=== PATIENT | male | born 1990 | race Caucasian/White ===

== ENCOUNTER 2021-05-17 12:17 | Emergency (ER) | payer MEDICAID ==
[2021-05-17] MEDS ORDERED: Metoclopramide 10 MG/2 ML SDV IVPUSH ONE (12:54)
[2021-05-17] MEDS ORDERED: diphenhydrAMINE 50 MG/ML SDV IVPUSH ONE (12:55)
[2021-05-17] MEDS ORDERED: HYDROmorphone 0.5 MG/0.5 ML Syringe IVPUSH ONE (12:55)
--- NOTE | 2021-05-17 12:59 | EDM.PDOC ---
ED HPI GENERAL MEDICAL PROBLEM - General Chief Complaint: Respiratory Problem Stated Complaint: POSS COVID SOB Time Seen by Provider: 05/17/21 12:40 Source of Information: Reports: Patient History Limitations: Reports: No Limitations - History of Present Illness INITIAL COMMENTS - FREE TEXT/NARRATIVE: 30-year-old male presents to the ED with COVID-19 symptoms. He has had fever chills and generalized myalgia for the last 4 days. Associated nausea vomiting can't even keep water down. He estimates he is having 20 bowel movements per day small quantities yellow stool loss with abdominal cramping pain. His father has COVID-19 and is getting better after receiving monoclonal antibodies. His sister was in hospital last week and apparently on a ventilator for period of time but is now back home. He states his mouth is terribly dry he is lightheaded dizzy and can barely walk due to weakness. Denies headache. Believes his sense of taste and smell are retained. No significant sore throat. Is coughing paroxysmal A but not producing any sputum. Onset: Sudden Onset Date: 05/13/21 Duration: Day(s):, Getting Worse Location: Reports: Chest, Generalized (Paroxysmal minimally productive cough generalized myalgia), Other (Significant diarrhea with fluid losses nausea vo miting) Quality: Reports: Other (Normalized) Severity: Severe (aching muscles neck low back thighs) Improves with: Reports: None Worsens with: Reports: Other (Is worse if he tries to stand up and walk. Came into the ED in a wheelchauir.) Context: Reports: Sick Contact. Denies: Activity, Exercise, Lifting Associated Symptoms: Reports: Chest Pain (Coughing.), Cough (Sister and father have COVID-19 illness), Diaphoresis, Fever/Chills ( stool loss), Loss of Appetite, Malaise, Nausea/Vomiting, Shortness of Breath, Other (Unable to keep down water. Diarrhea up to 20 times per day small quantity yellow). Denies: cough w sputum, Headaches Treatments NEGATIVE CLEANER: Reports: Other (see below) (Nothing will stay down) Generalized Pain Score (Numeric/FACES): 3 - Related Data Allergies Allergy/AdvReac Type Severity Reaction Status Date / Time No Known Allergies Allergy Verified 05/28/15 16:06 Home Meds: Home Meds Divalproex Sodium [Depakote ER] 500 mg PO BEDTIME 05/17/21 [History] Gabapentin [Neurontin] 600 mg PO BID PRN 05/17/21 [History] Mirtazapine [Remeron] 15 mg PO BEDTIME 05/17/21 [History] Ondansetron [Zofran] 4 mg BUCCAL Q6H PRN #8 tab 05/17/21 [Rx] buPROPion [Wellbutrin] 300 mg PO DAILY 05/17/21 [History] dexAMETHasone [Decadron] 6 mg PO BID #10 tablet 05/17/21 [Rx] Past Medical History HEENT History: Reports: Other (See Below) Other HEENT History: insomnia Musculoskeletal History: Reports: Back Pain, Chronic (Patient takes gabapentin and valproic acid for pain modulation due to chronic low back pain and sciatica.) Psychiatric History: Reports: Anxiety, Depression - Infectious Disease History Infectious Disease History: Reports: None Social & Family History - Tobacco Use Tobacco Use Status *Q: Never Tobacco User - Caffeine Use Caffeine Use: Reports: Soda - Recreational Drug Use Recreational Drug Use: No - Living Situation & Occupation Living situation: Reports: Single, with Family Occupation: Employed (Self-employed) ED ROS GENERAL - Review of Systems Review Of Systems: See Below Constitutional: Reports: Fever, Chills, Malaise, Weakness, Fatigue, Decreased Appetite, Weight Loss HEENT: Reports: No Symptoms Respiratory: Reports: Shortness of Breath, Cough. Denies: Wheezing, Pleuritic Chest Pain, Sputum, Hemoptysis (Paroxysmal nonproductive cough) Cardiovascular: Reports: Chest Pain, Dyspnea on Exertion, Lightheadedness. Denies: Blood Pressure Problem, Claudication (Upper anterior chest pain from coughing so much.), Orthopnea Endocrine: Reports: Fatigue GI/Abdominal: Reports: Diarrhea (Up to 20 times per day small volume yellow fluid loss may be starvation stools.), Nausea, Vomiting (Even water want stay down. No hematemesis) : Reports: Other (Urine is only once daily in the last 24 hours and very dark in color) Musculoskeletal: Reports: Back Pain (Tonic low back pain with sciatica. Patient takes gabapentin and valproic acid for pain modulation and Remeron to help sleep at nighttime.), Muscle Pain (Generalized myalgia particularly muscles of neck upper back low back thighs and hips.) Skin: Reports: No Symptoms Neurological: Reports: Dizziness, Difficulty Walking (Due to feeling so lightheaded and dizzy and weak.), Weakness Psychiatric: Reports: Anxiety, Depression Hematologic/Lymphatic: Reports: No Symptoms Immunologic: Reports: No Symptoms ED EXAM, GENERAL - Physical Exam Exam: See Below Exam Limited By: No Limitations General Appearance: Alert, WD/WN, Moderate Distress, Other (Patient appears ill. Patient is very warm to palpation. Recorded temperature is 36.8 but he feels much warmer than this. Heart rate was 87 and sinus respiratory is 20 with O2 sats of 96 to 97% room air. BP is 147/90.) Eye Exam: Bilateral Eye: Normal Inspection, PERRL (No blepharal pallor or scleral icterus.) Ears: Normal TMs Throat/Mouth: Other (Oropharynx is very dry and coated. No active infection appreciated) Head: Atraumatic, Normocephalic Neck: Normal Inspection, Supple, Non-Tender, Full Range of Motion. No: Lymphadenopathy (L), Lymphadenopathy (R) Respiratory/Chest: No Respiratory Distress, Lungs Clear, Normal Breath Sounds, No Accessory Muscle Use. No: Decreased Breath Sounds Cardiovascular: Normal Peripheral Pulses, Regular Rate, Rhythm, No Edema, No Gallop, No Murmur, No Rub Peripheral Pulses: 3+: Carotid (L), Carotid (R), Posterior Tibial (L), Posterior Tibial (R), Dorsalis Pedis (L), Dorsalis Pedis (R) GI/Abdominal: Normal Bowel Sounds, Soft, Non-Tender, No Organomegaly, No Mass, Pelvis Stable, Other (No surgical scars) Back Exam: Normal Inspection, Full Range of Motion. No: CVA Tenderness (L), CVA Tenderness (R) Extremities: Normal Inspection, Normal Range of Motion, Non-Tender, No Pedal Edema Neurological: Alert, Oriented, CN II-XII Intact, Normal Cognition, No Motor/Se nsory Deficits Psychiatric: Flat Affect Skin Exam: Warm, Dry, Intact, Normal Color, No Rash #1 Interpretation EKG Date: 05/17/21 Time: 13:10 Rhythm: NSR Rate (Beats/Min): 93 [place]k: Normal P-Wave: Present QRS: Normal ST-T: Normal QT: Normal EKG Interpretation Comments: Normal ECG Course - Vital Signs Last Recorded V/S: Last Vital Signs Temp 36.7 C 05/17/21 18:45 Pulse 72 05/17/21 18:45 Resp 16 05/17/21 18:45 BP 125/80 05/17/21 18:45 Pulse Ox 93 L 05/17/21 18:45 - Orders/Labs/Meds Labs: Laboratory Tests 05/17/21 05/17/21 05/17/21 Range/Units 13:20 13:25 13:25 WBC 4.99 (4.23-9.07) K/mm3 RBC 5.89 (4.63-6.08) M/mm3 Hgb 17.9 H (13.7-17.5) gm/dl Hct 53.5 H (40.1-51.0) % MCV 90.8 D (79.0-92.2) fl MCH 30.4 (25.7-32.2) pg MCHC 33.5 (32.2-35.5) g/dl RDW Std Deviation 44.2 H (35.1-43.9) fL Plt Count 213 (163-337) K/mm3 MPV 10.5 (9.4-12.3) fl Neut % (Auto) 64.8 (34.0-67.9) % Lymph % (Auto) 17.4 L (21.8-53.1) % Kerr % (Auto) 17.2 H (5.3-12.2) % Eos % (Auto) 0 L (0.8-7.0) Baso % (Auto) 0.4 (0.1-1.2) % Neut # (Auto) 3.23 (1.78-5.38) K/mm3 Lymph # (Auto) 0.87 L (1.32-3.57) K/mm3 Kerr # (Auto) 0.86 H (0.30-0.82) K/mm3 Eos # (Auto) 0.00 L (0.04-0.54) K/mm3 Baso # (Auto) 0.02 (0.01-0.08) K/mm3 Sodium 138 (136-145) mEq/L Potassium 4.7 (3.5-5.1) mEq/L Chloride 101 (98-107) mEq/L Carbon Dioxide 24 (21-32) mEq/L Anion Gap 17.7 H (5-15) BUN 13 (7-18) mg/dL Creatinine 1.5 H (0.7-1.3) mg/dL Est Cr Clr Drug Dosing 69.03 mL/min Estimated GFR (MDRD) 55 (>60) mL/min BUN/Creatinine Ratio 8.7 L (14-18) Glucose 102 H (70-99) mg/dL Lactic Acid (0.4-2.0) mmol/L Calcium 9.3 (8.5-10.1) mg/dL Magnesium 2.2 (1.8-2.4) mg/dL Ferritin (26-388) ng/ml Total Bilirubin 0.9 (0.2-1.0) mg/dL AST 64 H (15-37) U/L ALT 147 H (16-63) U/L Alkaline Phosphatase 95 (46-116) U/L Lactate Dehydrogenase 331 H (85-227) U/L Troponin I < 0.017 (0.00-0.056) ng/mL C-Reactive Protein 1.0 (<1.0) mg/dL NT-Pro-B Natriuret Pep (0-125) pg/mL Total Protein 9.2 H (6.4-8.2) g/dl Albumin 4.7 (3.4-5.0) g/dl Globulin 4.5 gm/dL Albumin/Globulin Ratio 1.0 (1-2) Valproic Acid < 3.0 L (50.0-100.0) ug/mL SARS-CoV-2 RNA (MEI) Positive H (NEGATIVE) 05/17/21 05/17/21 05/17/21 Range/Units 13:25 13:25 13:25 WBC (4.23-9.07) K/mm3 RBC (4.63-6.08) M/mm3 Hgb (13.7-17.5) gm/dl Hct (40.1-51.0) % MCV (79.0-92.2) fl MCH (25.7-32.2) pg MCHC (32.2-35.5) g/dl RDW Std Deviation (35.1-43.9) fL Plt Count (163-337) K/mm3 MPV (9.4-12.3) fl Neut % (Auto) (34.0-67.9) % Lymph % (Auto) (21.8-53.1) % Kerr % (Auto) (5.3-12.2) % Eos % (Auto) (0.8-7.0) Baso % (Auto) (0.1-1.2) % Neut # (Auto) (1.78-5.38) K/mm3 Lymph # (Auto) (1.32-3.57) K/mm3 Kerr # (Auto) (0.30-0.82) K/mm3 Eos # (Auto) (0.04-0.54) K/mm3 Baso # (Auto) (0.01-0.08) K/mm3 Sodium (136-145) mEq/L Potassium (3.5-5.1) mEq/L Chloride (98-107) mEq/L Carbon Dioxide (21-32) mEq/L Anion Gap (5-15) BUN (7-18) mg/dL Creatinine (0.7-1.3) mg/dL Est Cr Clr Drug Dosing mL/min Estimated GFR (MDRD) (>60) mL/min BUN/Creatinine Ratio (14-18) Glucose (70-99) mg/dL Lactic Acid 1.0 (0.4-2.0) mmol/L Calcium (8.5-10.1) mg/dL Magnesium (1.8-2.4) mg/dL Ferritin 819 H (26-388) ng/ml Total Bilirubin (0.2-1.0) mg/dL AST (15-37) U/L ALT (16-63) U/L Alkaline Phosphatase (46-116) U/L Lactate Dehydrogenase (85-227) U/L Troponin I (0.00-0.056) ng/mL C-Reactive Protein (<1.0) mg/dL NT-Pro-B Natriuret Pep 6 (0-125) pg/mL Total Protein (6.4-8.2) g/dl Albumin (3.4-5.0) g/dl Globulin gm/dL Albumin/Globulin Ratio (1-2) Valproic Acid (50.0-100.0) ug/mL SARS-CoV-2 RNA (MEI) (NEGATIVE) Meds: Medications Discontinued Medications Generic Name Dose Route Start Last Admin Trade Name Freq PRN Reason Stop Dose Admin Dexamethasone 6 mg 05/17/21 18:03 05/17/21 18:51 Dexamethasone 10 Mg/Ml Sdv IVPUSH 05/17/21 18:04 6 mg ONETIME ONE Administration Diphenhydramine HCl 12.5 mg 05/17/21 12:55 05/17/21 13:30 Diphenhydramine 50 Mg/Ml Sdv IVPUSH 05/17/21 12:56 12.5 mg ONETIME ONE Administration Diphenhydramine HCl 50 mg 05/17/21 15:01 Diphenhydramine 50 Mg/Ml Sdv IVPUSH ONETIME PRN hypersensitivity reaction Epinephrine HCl 0.3 mg 05/17/21 15:01 Epinephrine 1 Mg/Ml Sdv IM ONETIME PRN hypersensitivity reaction Famotidine 20 mg 05/17/21 15:01 Famotidine 20 Mg/2 Ml Sdv IVPUSH ONETIME PRN hypersensitivity reaction Hydromorphone HCl 0.5 mg 05/17/21 12:55 05/17/21 13:34 Hydromorphone 0.5 Mg/0.5 Ml Syringe IVPUSH 05/17/21 12:56 0.5 mg ONETIME ONE Administration Dextrose/Sodium Chloride 1,000 mls @ 750 mls/hr 05/17/21 13:00 05/17/21 13:39 Dextrose 5%-Normal Saline IV 750 mls/hr ASDIRECTED [place] Administration CASIRIVIMAB/IMDEVIMAB 10 ml/ 110 mls @ 220 mls/hr 05/17/21 15:01 05/17/21 16:26 Sodium Chloride IV 05/17/21 15:30 220 mls/hr ONETIME ONE Administration Sodium Chloride 1,000 mls @ 999 mls/hr 05/17/21 16:15 Normal Saline IV ASDIRECTED [facility]ENS Ketorolac Tromethamine 30 mg 05/17/21 13:00 05/17/21 13:36 Ketorolac 30 Mg/Ml Sdv IVPUSH 30 mg ONETIME [place] Administration Methylprednisolone Sodium Succinate 125 mg 05/17/21 15:01 Methylprednisolone Sodium Succinate 125 Mg/2 Ml Sdv IVPUSH ONETIME PRN hypersensitivity reaction Metoclopramide HCl 7.5 mg 05/17/21 12:54 05/17/21 13:32 Metoclopramide 10 Mg/2 Ml Sdv IVPUSH 05/17/21 12:55 7.5 mg ONETIME ONE Administration Ondansetron HCl 4 mg 05/17/21 18:03 05/17/21 18:51 Ondansetron 4 Mg/2 Ml Sdv IVPUSH 05/17/21 18:04 4 mg ONETIME ONE Administration Sodium Chloride 30 ml 05/17/21 15:15 Sodium Chloride 0.9% 10 Ml Syringe FLUSH ASDIRECTED [place] - Radiology Interpretation Free Text/Narrative:: 30-year-old male presents to the ED feeling very ill. States he developed fever chills generalized body aches about 3-1/2 to 4 days ago. His father is sick at home with COVID-19 and his sister was recently admitted to the hospital and subsequently discharged but was on the vent for short period of time due to COVID-19 illness. He has a paroxysmal nonproductive cough. He has significant GI symptoms with nausea vomiting and inability to keep down even water. Associated frequent diarrhea with small quantity volume stool losses up to 20 times per day. No headache no sore throat is retained sense of taste and smell. Clinically he appears volume depleted. IV will be D5 normal saline at open. He is a candidate for monoclonal antibody therapy if he proves positive for COVID-19 illness which believe he will. He will have a COVID-19 work-up with labs and chest x-ray and ECG ordered. Given Reglan 7.5 mg IV for nausea relief with Benadryl 12.5 mg IV to prevent any interaction with his Wellbutrin. Dilaudid 0.5 mg IV and Toradol 30 mg IV for pain and fever relief at this time. - Re-Assessments/Exams Free Text/Narrative Re-Assessment/Exam: 05/17/21 14:27 chest x-ray done portably reveals lung parenchyma to be essentially normal. He has slight prominence of both pulmonary arteries. Cardiac silhouette and mediastinum are normal. 05/17/21 14:49 White count is 4.99 with auto differential showing 65% neutrophils. Hemoglobin is 17.9 with hematocrit of 53.5 integrating hemoconcentration. Platelet count is 213,000. Valproic acid is less than 3.0. COVID-19 is positive. Discussed the findings with the patient and he is decided to proceed with monoclonal antibody infusion. At present this will be [facility]. I spoke to Fareed Dawkins to provide information about the medication. He has read the fax sheet for patients and parents and caregivers and is aware of the medication as his father received monoclonal antibodies and improved within a couple of days. He is aware the therapy has been approved by an emergency use authorization process and has not been fully approved by FDA. I shared potential risk from the therapy including risks/adverse reactions such as allergic problems. I discussed there are other potential treatment options that are currently not FDA approved to treat COVID-19 as well. Offered the opportunity ask questions and all questions were answered. The patient Mr. Fareed Dawkins treatment with monoclonal antibodies and voiced understanding and proceed with treatment for himself. 05/17/21 16:01 Sodium is 138 with a potassium of 4.7. Chloride is 101 with a bicarb of 24. Anion gap is 17.7. BUN was 13 with a creatinine of 1.5 and a GFR of 55. Glucose was 102. Lactic acid is 1.0. Calcium was 9.3 with a magnesium of 2.2. Serum ferritin elevated at 819. Total bilirubin is 0.9 with an AST of 64 and ALT of 147. Alkaline phosphatase is 95. LDH is 331. Troponin I is less than 0.017 C-reactive protein was 1.0 BNP is 6 05/17/21 18:04 He has had no adverse effects of monoclonal antibody infusion. H e is feeling much improved. He will be discharged home. He will receive first dose of dexamethasone 6 mg IV at this time. I am going to place him on dexamethasone 6 mg twice daily for 5 days as an outpatient. Zofran 4 mg sublingual every 4 to 6 hours for nausea relief. Considered contagious to others until Tuesday, May 23. He will stay away from his children. He is currently with his sister and [place] and they both already have COVID-19. I am going to discharge him to home with Zofran 4 mg sublingually every 4 to 6 hours. For nausea relief so that he can keep down fluids and perhaps small quantities of food. Going to place him on dexamethasone 6 mg twice daily for the next 10 days as well. He will return if his O2 sats dropped below 88% and stay there for more than 2 consecutive hours. To my knowledge she was discharged home with a pulse oximeter. Departure - Departure Time of Disposition: 18:10 Disposition: Home, Self-Care Condition: Fair Clinical Impression: COVID-19 determined by clinical diagnostic criteria - Discharge Information *PRESCRIPTION DRUG MONITORING PROGRAM REVIEWED*: Not Applicable *COPY OF PRESCRIPTION DRUG MONITORING REPORT IN PATIENT [place]: Not Applicable Prescriptions: dexAMETHasone [Decadron] 6 mg PO BID #10 tablet Ondansetron [Zofran] 4 mg BUCCAL Q6H PRN #8 tab PRN Reason: nausea or vomiting Instructions: COVID-19: What Your Test Results Mean - [facility]), COVID- 19 Frequently Asked Questions, Things to Know about the COVID-19 Pandemic - [facility] (11/26/2020), 10 Things You Can Do to Manage Your COVID-19 Symptoms at Home - [facility] (03/12/2020), COVID-19: How to Protect Yourself and Others - [facility], COVID-19: Quarantine vs. Isolation - [facility] (08/28/2020) Referrals: PCP,None [Primary Care Provider] - Forms: ED Department Discharge Additional Instructions: Evaluation in the emergency room today in regards to fever, chills, nausea and vomiting, generalized weakness and dizziness and associated diarrhea. These are all signs and symptoms of COVID-19 illness. Lab test confirmed that you do in fact have COVID-19 illness. The chest x-ray was essentially normal at this time with no pneumonia. You were treated with intravenous fluids to provide rehydration. Also medicine Reglan 10 mg IV to bring nausea under control. You were then given monoclonal antibodies intravenously over 1 hour which is called Regen-Cov. The idea behind this treatment is to give you immediate antibodies to the COVID-19 virus in the hopes of bringing your illness under control quicker and to make it much less severe. You are also given first dose of dexamethasone steroid 6 mg intravenously while in the department. Treatment as an outpatient is to quarantine yourself from others for at least another 6 days I would suggest until May 23 since your illness started about 4 days ago. You are considered contagious to others or by shedding the virus from your nose and lungs for at least 10 days from the time you started to become ill. May use Zofran 4 mg under the tongue every 4-6 hours necessary to relieve nausea and vomiting. Suggest plenty of fluids such as Gatorade or Powerade. Avoid all dairy products and no apple juice or grape juice until stools are formed back up. Diet as tolerated . Suggest using steroid dexamethasone 6 mg tablet twice daily with breakfast and supper for the next 5 days to further help reduce the inflammation in the lungs and get you feeling better sooner. The biggest complaint will be overwhelming fatigue. Cough for last at least another 2 weeks and usually is relatively nonproductive. You would need to return to the emergency room if you found yourself really short of breath and not getting better in the next 3 to 5 days. Up often days 8-11 of the illness are the worst.
[2021-05-17] MEDS ORDERED: Dextrose 5%-0.9% NaCl 1,000 ML IV SCH (13:00)
[2021-05-17] MEDS ORDERED: Ketorolac 30 MG/ML SDV IVPUSH SCH (13:00)
[2021-05-17] MEDS ORDERED: diphenhydrAMINE 50 MG/ML SDV IVPUSH PRN (15:01)
[2021-05-17] MEDS ORDERED: methylPREDNISolone Sodium Succinate 125 MG/2 ML SDV IVPUSH PRN (15:01)
[2021-05-17] MEDS ORDERED: Famotidine 20 MG/2 ML SDV IVPUSH PRN (15:01)
[2021-05-17] MEDS ORDERED: EPINEPHrine 1 MG/ML SDV IM PRN (15:01)
[2021-05-17] MEDS ORDERED: Sodium Chloride 0.9% 10 ML Syringe FLUSH SCH (15:15)
[2021-05-17] MEDS ORDERED: Sodium Chloride 0.9% 1,000 ML IV SCH (16:15)
[2021-05-17] MEDS ORDERED: Dexamethasone 10 MG/ML SDV IVPUSH ONE (18:03)
[2021-05-17] MEDS ORDERED: Ondansetron 4 MG/2 ML SDV IVPUSH ONE (18:03)
[2021-05-17 19:09] VITALS: BP 125/80; PULSE 72
--- NOTE | 2021-05-18 11:10 | CR ---
Chest: Frontal view of the chest was obtained. Comparison: No prior chest imaging is available. Heart size and mediastinum are within normal limits. Lungs are clear with no acute parenchymal change. Bony structures appear within normal limits. Impression: 1. Nothing acute is seen on frontal chest x-ray. Diagnostic code #1
== END 2021-05-17 18:45 | disposition home or self-care (01) ==
LOC: JD.ED 12:17
DX: U07.1 COVID-19 (principal)
CPT/HCPCS: 36415; 71045; 80053; 80164; 82728; 83605; 83615; 83735; 83880; 84484; 85025; 86140; 87635; 93005; 96374; 96375; 99284; J1100; J1170; J1200; J1885; J2405; J2765; J7042; M0243; Q0243; 93010; U0002